=== PATIENT | female | born 1975 | race Caucasian/White ===

== ENCOUNTER 2021-07-26 15:56 | Emergency (ER) | payer MEDICAID ==
[~2021-07-26] VITALS: Ht 162.6 cm; Wt 61.5 kg
[2021-07-26 17:31] VITALS: BP 98/77
[2021-07-26 18:10] LABS: BASOPHILS # (AUTO) 0.1 X10'3 (0-0.2); BASOPHILS % (AUTO) 1.1 % (0-1); EOSINOPHILS # (AUTO) 0.4 X10'3 (0-0.9); EOSINOPHILS % (AUTO) 3.8 % (0-6); HEMATOCRIT 34.6 % (35.0-45.0); HEMOGLOBIN 11.7 g/dl (12.0-16.0); LYMPHOCYTES # (AUTO) 2.7 X10'3 (1.1-4.8); LYMPHOCYTES % (AUTO) 25.3 % (21-51); MEAN CORPUSCULAR HEMOGLOBIN 38.1 PG (27.0-31.0); MEAN CORPUSCULAR HGB CONC 33.9 g/dL (33.0-36.5); MEAN CORPUSCULAR VOLUME 112.4 FL (78-98); MEAN PLATELET VOLUME 8.1 FL (7.4-10.4); MONOCYTES # (AUTO) 1.1 X10'3 (0-0.9); MONOCYTES % (AUTO) 10.1 % (2-12); NEUTROPHILS # (AUTO) 6.3 X10'3 (1.8-7.7); NEUTROPHILS % (AUTO) 59.7 % (42-75); PLATELET COUNT 639 X10'3 (140-440); RED BLOOD COUNT 3.08 X10'6 (4.20-5.60); RED CELL DISTRIBUTION WIDTH 16.4 % (11.5-14.5); WHITE BLOOD COUNT 10.6 X10'3 (4.5-11.0)
[2021-07-26 18:20] LABS: ALANINE AMINOTRANSFERASE 23 U/L (12-78); ALBUMIN 2.5 G/DL (3.4-5.0); ALBUMIN/GLOBULIN RATIO 0.6 (1.1-1.5); ALKALINE PHOSPHATASE 205 IU/L (46-116); ANION GAP 13 (8-16); ASPARTATE AMINO TRANSFERASE 59 U/L (10-37); BILIRUBIN,TOTAL 0.9 MG/DL (0.1-1.0); BLOOD UREA NITROGEN 7 MG/DL (7-18); BUN/CREATININE RATIO 12.7 (6.6-38.0); CALCIUM 8.4 MG/DL (8.5-10.1); CHLORIDE 107 MMOL/L (99-107); CREATININE 0.55 MG/DL (0.40-0.90); GLUCOSE 88 MG/DL (70-104); SODIUM 142 MMOL/L (135-145); TOTAL CARBON DIOXIDE 22.5 MMOL/L (24-32); TOTAL PROTEIN 6.7 G/DL (6.4-8.2); eGFR > 90 ML/MIN
[2021-07-26 18:27] LABS: MAGNESIUM 1.8 MG/DL (1.5-2.4)
[2021-07-26 19:16] LABS: PLATELET ESTIMATE INCREASED
[2021-07-26 19:17] LABS: ANISOCYTOSIS 1+
== END 2021-07-26 19:46 | disposition home or self-care (01) ==
LOC: ER 15:58
DX: R07.89 Other chest pain (principal); Z20.822 Contact with and (suspected) exposure to COVID-19; M25.512 Pain in left shoulder; Z87.440 Personal history of urinary (tract) infections
CPT/HCPCS: 36415; 71045; 80053; 83735; 83880; 84484; 85008; 85025; 87635; 93005; 99285; C9803

== ENCOUNTER 2021-08-10 11:29 | Emergency (ER) | payer MEDICAID ==
[~2021-08-10] VITALS: Ht 162.6 cm; Wt 68.7 kg
[2021-08-10 11:35] VITALS: BP 105/73
[2021-08-10 16:28] LABS: ALANINE AMINOTRANSFERASE 17 U/L (12-78); ALBUMIN 2.3 G/DL (3.4-5.0); ALBUMIN/GLOBULIN RATIO 0.6 (1.1-1.5); ALKALINE PHOSPHATASE 113 IU/L (46-116); ANION GAP 13 (8-16); ASPARTATE AMINO TRANSFERASE 27 U/L (10-37); BILIRUBIN,TOTAL 0.4 MG/DL (0.1-1.0); BLOOD UREA NITROGEN 4 MG/DL (7-18); CALCIUM 8.9 MG/DL (8.5-10.1); CHLORIDE 107 MMOL/L (99-107); CREATININE 0.57 MG/DL (0.40-0.90); GLUCOSE 90 MG/DL (70-104); POTASSIUM 3.9 MMOL/L (3.5-5.1); SODIUM 145 MMOL/L (135-145); TOTAL CARBON DIOXIDE 25.4 MMOL/L (24-32); TOTAL PROTEIN 6.1 G/DL (6.4-8.2); eGFR > 90 ML/MIN
[2021-08-10 17:34] LABS: HEMATOCRIT 40.5 % (35.0-45.0); LYMPHOCYTES # (AUTO) 3.3 X10'3 (1.1-4.8); MEAN PLATELET VOLUME 9.4 FL (7.4-10.4); MONOCYTES # (AUTO) 1.3 X10'3 (0-0.9)
[2021-08-10 17:35] LABS: BASOPHILS % (AUTO) 0.2 % (0-1); EOSINOPHILS # (AUTO) 0.6 X10'3 (0-0.9); EOSINOPHILS % (AUTO) 3.5 % (0-6); LYMPHOCYTES % (AUTO) 19.6 % (21-51); MEAN CORPUSCULAR HGB CONC 32.2 g/dL (33.0-36.5); MEAN CORPUSCULAR VOLUME 108.8 FL (78-98); MONOCYTES % (AUTO) 7.5 % (2-12); NEUTROPHILS # (AUTO) 11.7 X10'3 (1.8-7.7); NEUTROPHILS % (AUTO) 69.2 % (42-75); PLATELET COUNT 643 X10'3 (140-440); RED BLOOD COUNT 3.72 X10'6 (4.20-5.60); RED CELL DISTRIBUTION WIDTH 15.9 % (11.5-14.5); WHITE BLOOD COUNT 16.9 X10'3 (4.5-11.0)
[2021-08-10] MEDS ORDERED: CefTRIAXone/D5W-Rocephin 1gm 50 ML IV ONE (17:45)
[2021-08-10 18:03] LABS: LIPASE 3146 U/L (73-393)
== END 2021-08-10 20:17 | disposition left against medical advice (07) ==
LOC: ER 11:30
DX: K74.60 Unspecified cirrhosis of liver (principal); R18.8 Other ascites; R10.84 Generalized abdominal pain; R11.2 Nausea with vomiting, unspecified; R19.7 Diarrhea, unspecified; Z87.440 Personal history of urinary (tract) infections
CPT/HCPCS: 36415; 76705; 80053; 83605; 83690; 84145; 85025; 85610; 87040; 99284

== ENCOUNTER 2021-08-19 10:10 | Emergency (ER) | payer MEDICAID ==
[~2021-08-19] VITALS: Ht 162.6 cm; Wt 71.7 kg
[2021-08-19 11:19] VITALS: BP 110/72
[2021-08-19 14:27] LABS: ALANINE AMINOTRANSFERASE 13 U/L (12-78); ALBUMIN 2.4 G/DL (3.4-5.0); ALBUMIN/GLOBULIN RATIO 0.6 (1.1-1.5); ALKALINE PHOSPHATASE 123 IU/L (46-116); ANION GAP 7 (8-16); ASPARTATE AMINO TRANSFERASE 30 U/L (10-37); BILIRUBIN,TOTAL 0.3 MG/DL (0.1-1.0); BLOOD UREA NITROGEN 5 MG/DL (7-18); BUN/CREATININE RATIO 9.1 (6.6-38.0); CALCIUM 8.1 MG/DL (8.5-10.1); CHLORIDE 109 MMOL/L (99-107); CREATININE 0.55 MG/DL (0.40-0.90); GLUCOSE 102 MG/DL (70-104); LIPASE 1155 U/L (73-393); POTASSIUM 3.9 MMOL/L (3.5-5.1); SODIUM 143 MMOL/L (135-145); TOTAL CARBON DIOXIDE 26.6 MMOL/L (24-32); TOTAL PROTEIN 6.5 G/DL (6.4-8.2); eGFR > 90 ML/MIN
[2021-08-19 17:34] LABS: URINE HCG NEGATIVE (NEG)
[2021-08-19 17:45] LABS: CLARITY,URINE CLOUDY (Clear); COLOR,URINE STRAW (Yellow); UA COLLECTION TYPE CLN CATCH MIDSTREAM
[2021-08-19 17:46] LABS: GLUCOSE, URINE NEGATIVE (Neg); KETONES,URINE NEGATIVE (Neg); NITRITES, URINE NEGATIVE (Neg); OCCULT BLOOD,URINE NEGATIVE (Neg); PROTEIN,URINE NEGATIVE (Neg); UROBILINOGEN,URINE 0.2 E.U/dL (0.2-1.0)
[2021-08-19 17:47] LABS: LEUKOCYTE ESTERASE ,URINE NEGATIVE (Neg)
[2021-08-19 17:55] LABS: MUCUS STRANDS MANY /LPF (Neg); SQUAMOUS EPITHELIAL CELL,UR MANY /LPF (FEW)
[2021-08-19 17:56] LABS: CAL OXALATE CRYSTALS 2+ /HPF (NEGATIVE)
[2021-08-19 17:57] LABS: BACTERIA,URINE 2+ /HPF (Neg); RBC,URINE NONE SEEN /HPF (0-2); WBC,URINE 0-4 /HPF (0-4)
[2021-08-19 18:37] LABS: BASOPHILS # (AUTO) 0.1 X10'3 (0-0.2); BASOPHILS % (AUTO) 1.2 % (0-1); EOSINOPHILS # (AUTO) 1.2 X10'3 (0-0.9); EOSINOPHILS % (AUTO) 10.4 % (0-6); HEMATOCRIT 37.3 % (35.0-45.0); HEMOGLOBIN 12.3 g/dl (12.0-16.0); LYMPHOCYTES # (AUTO) 3.1 X10'3 (1.1-4.8); LYMPHOCYTES % (AUTO) 27.3 % (21-51); MEAN CORPUSCULAR VOLUME 106.1 FL (78-98); MEAN PLATELET VOLUME 8.9 FL (7.4-10.4); MONOCYTES # (AUTO) 0.9 X10'3 (0-0.9); MONOCYTES % (AUTO) 7.5 % (2-12); NEUTROPHILS # (AUTO) 6.1 X10'3 (1.8-7.7); NEUTROPHILS % (AUTO) 53.6 % (42-75); PLATELET COUNT 462 X10'3 (140-440); RED BLOOD COUNT 3.51 X10'6 (4.20-5.60); RED CELL DISTRIBUTION WIDTH 15.2 % (11.5-14.5); WHITE BLOOD COUNT 11.5 X10'3 (4.5-11.0)
== END 2021-08-19 22:20 | disposition left against medical advice (07) ==
LOC: ER 10:17
DX: R10.9 Unspecified abdominal pain (principal); Z53.21 Procedure and treatment not carried out due to patient leaving prior to being seen by health care provider
CPT/HCPCS: 36415; 80053; 81001; 81025; 83690; 85025

== ENCOUNTER 2021-08-23 16:36 | Emergency (ER) | payer MEDICAID ==
[~2021-08-23] VITALS: Ht 162.6 cm; Wt 71.4 kg
[2021-08-23 17:25] LABS: BASOPHILS # (AUTO) 0.2 X10'3 (0-0.2); BASOPHILS % (AUTO) 1.2 % (0-1); EOSINOPHILS # (AUTO) 1.1 X10'3 (0-0.9); HEMOGLOBIN 12.8 g/dl (12.0-16.0); MEAN CORPUSCULAR HEMOGLOBIN 34.8 PG (27.0-31.0); MEAN PLATELET VOLUME 8.8 FL (7.4-10.4); RED BLOOD COUNT 3.68 X10'6 (4.20-5.60)
[2021-08-23 17:27] LABS: EOSINOPHILS % (AUTO) 8.5 % (0-6); HEMATOCRIT 38.5 % (35.0-45.0); LYMPHOCYTES # (AUTO) 3.5 X10'3 (1.1-4.8); LYMPHOCYTES % (AUTO) 27.2 % (21-51); MEAN CORPUSCULAR HGB CONC 33.3 g/dL (33.0-36.5); MEAN CORPUSCULAR VOLUME 104.6 FL (78-98); MONOCYTES % (AUTO) 7.9 % (2-12); NEUTROPHILS # (AUTO) 7.1 X10'3 (1.8-7.7); NEUTROPHILS % (AUTO) 55.2 % (42-75); PLATELET COUNT 528 X10'3 (140-440); RED CELL DISTRIBUTION WIDTH 15.4 % (11.5-14.5); WHITE BLOOD COUNT 12.8 X10'3 (4.5-11.0)
[2021-08-23 17:36] LABS: ALANINE AMINOTRANSFERASE 11 U/L (12-78); ALBUMIN 2.4 G/DL (3.4-5.0); ALBUMIN/GLOBULIN RATIO 0.6 (1.1-1.5); ALKALINE PHOSPHATASE 121 IU/L (46-116); ANION GAP 8 (8-16); ASPARTATE AMINO TRANSFERASE 31 U/L (10-37); BILIRUBIN,TOTAL 0.3 MG/DL (0.1-1.0); BLOOD UREA NITROGEN 5 MG/DL (7-18); BUN/CREATININE RATIO 10.6 (6.6-38.0); CALCIUM 8.6 MG/DL (8.5-10.1); CHLORIDE 107 MMOL/L (99-107); CREATININE 0.47 MG/DL (0.40-0.90); GLUCOSE 97 MG/DL (70-104); POTASSIUM 3.7 MMOL/L (3.5-5.1); SODIUM 137 MMOL/L (135-145); TOTAL CARBON DIOXIDE 21.9 MMOL/L (24-32); TOTAL PROTEIN 6.2 G/DL (6.4-8.2); eGFR > 90 ML/MIN
[2021-08-23 17:40] LABS: LIPASE 1524 U/L (73-393)
[2021-08-23] MEDS ORDERED: ondansetron 4mg rapidly disintigrating tab PO ONE (18:55)
[2021-08-23] MEDS ORDERED: spironolactone 50 MG tablet PO STA (18:58)
[2021-08-23] MEDS ORDERED: furosemide 20MG tablet PO ONE (19:00)
[2021-08-23] MEDS ORDERED: POTASSIUM BICARB 20meq eff tab 20 MEQ TABLET.EFF PO ONE (19:00)
[2021-08-23] MEDS ORDERED: ONDA4TAB6 PO (19:06)
[2021-08-23] MEDS ORDERED: FURO-150 PO (19:06)
[2021-08-23] MEDS ORDERED: SPIR50TA5 PO (19:06)
[2021-08-23 19:10] LABS: UA COLLECTION TYPE CLN CATCH MIDSTREAM
[2021-08-23 19:12] LABS: CLARITY,URINE TURBID (Clear); COLOR,URINE YELLOW (Yellow); GLUCOSE, URINE NEGATIVE (Neg); KETONES,URINE NEGATIVE (Neg); LEUKOCYTE ESTERASE ,URINE NEGATIVE (Neg); NITRITES, URINE NEGATIVE (Neg); OCCULT BLOOD,URINE NEGATIVE (Neg); PROTEIN,URINE TRACE mg/dl (Neg); UROBILINOGEN,URINE 0.2 E.U/dL (0.2-1.0)
[2021-08-23] MEDS ORDERED: POTASSIUM BICARBONATE/CIT AC 10 MEQ TABLET.EFF PO ONE (19:15)
[2021-08-23 19:34] LABS: MUCUS STRANDS MANY /LPF (Neg); SQUAMOUS EPITHELIAL CELL,UR MANY /LPF (FEW)
[2021-08-23 19:35] LABS: BACTERIA,URINE 1+ /HPF (Neg)
[2021-08-23 19:40] LABS: RBC,URINE 0-2 /HPF (0-2); WBC,URINE 0-4 /HPF (0-4)
--- NOTE | 2021-08-23 19:55 | NUR ---
DR. KATZ AT BEDSIDE DISCUSSING PLAN CARE OF AND DC INSTRUCTIONS W/ PT.
[2021-08-23 20:03] VITALS: BP 105/75
== END 2021-08-23 20:08 | disposition home or self-care (01) ==
LOC: ER 16:37
DX: R18.8 Other ascites (principal); K74.60 Unspecified cirrhosis of liver; R11.0 Nausea; R10.84 Generalized abdominal pain; Z87.440 Personal history of urinary (tract) infections; Z90.89 Acquired absence of other organs; Z72.89 Other problems related to lifestyle; Z79.899 Other long term (current) drug therapy
CPT/HCPCS: 36415; 80053; 81001; 83690; 85025; 85610; 99284

== ENCOUNTER 2021-09-16 06:09 | Day surgery (SDC) | payer MEDICAID ==
[~2021-09-16] VITALS: Ht 162.6 cm; Wt 70.3 kg
[2021-09-16] VITALS (10 sets, daily range): BP systolic 93–121; BP diastolic 45–82
[~2021-09-16 06:09] MED LIST: FURO-150 PO; ONDA4TAB6 PO; SPIR50TA5 PO
[2021-09-16] MEDS ORDERED: albumin 25% 100mL bottle x 1 IV PRN (06:35)
[2021-09-16] MEDS ORDERED: normal saline 1000ml 1,000 ML IV PRN (06:35)
[2021-09-16] MEDS ORDERED: PANT40TA54 PO (06:57)
[2021-09-16] MEDS ORDERED: FURO-150 PO (06:57)
[2021-09-16] MEDS ORDERED: ACET-1025 PO (06:57)
[2021-09-16] MEDS ORDERED: IBUP-24 PO (06:57)
[2021-09-16] MEDS ORDERED: ONDA4TAB12 PO (06:57)
[2021-09-16] MEDS ORDERED: CALC500T11 PO (06:57)
[2021-09-16] MEDS ORDERED: SPIR50TA5 PO (06:57)
[2021-09-16 11:08] LABS: GLUCOSE,BODY FLUID 93 MG/DL; LDH,BODY FLUID 108 U/L; TOTAL PROTEIN,BODY FLUID 3.3 G/DL
[2021-09-16 11:20] LABS: BF RBC COUNT 705 /CU MM; BF WBC COUNT 220 /CU MM (0-1000); BFAPPEAR HAZY; BFCOLOR YELLOW; BFVOLUME 60 ML
[2021-09-16 11:21] LABS: BF MESOTHELIAL CELLS MODERATE; EOSINOPHILS,BODY FLUID 7 %; LYMPHOCYTES,BODY FLUID 64 %; MONOCYTES,BODY FLUID 23 %; NEUTROPHILS,BODY FLUID 6 %
== END 2021-09-16 10:25 | disposition home or self-care (01) ==
LOC: SSTAY O 06:09
PROVIDERS: ATTEND Preventive Medicine Aerospace Medicine
DX: R18.8 Other ascites (principal); K21.9 Gastro-esophageal reflux disease without esophagitis; K74.60 Unspecified cirrhosis of liver; F10.20 Alcohol dependence, uncomplicated; F17.290 Nicotine dependence, other tobacco product, uncomplicated; Z98.890 Other specified postprocedural states; Z79.899 Other long term (current) drug therapy
CPT/HCPCS: 49083; 82945; 83615; 84157; 87070; 89051; P9047

== ENCOUNTER 2021-10-05 06:15 | Day surgery (SDC) | payer MEDICAID ==
[~2021-10-05] VITALS: Ht 162.6 cm; Wt 63.5 kg
[~2021-10-05 06:15] MED LIST changes: +ACET-1025 PO; +CALC500T11 PO; +IBUP-24 PO; +LIDOcaine 1% 30ml preserv. free vial SQ STA; +ONDA4TAB12 PO; -ONDA4TAB6 PO; +PANT40TA54 PO
[2021-10-05] MEDS ORDERED: albumin 25% 100mL bottle x 1 IV PRN (06:35)
[2021-10-05] MEDS ORDERED: normal saline 1000ml 1,000 ML IV PRN (06:35)
[2021-10-05 07:00] VITALS: BP 101/65
[2021-10-05] MEDS ORDERED: LACT10SO3 PO (07:03)
[2021-10-05 08:20] VITALS: BP 119/69
[2021-10-05 08:27] VITALS: BP 97/78
[2021-10-05 08:33] VITALS: BP 94/59
[2021-10-05 08:50] VITALS: BP 97/63
== END 2021-10-05 08:55 | disposition home or self-care (01) ==
LOC: SSTAY O 06:15
PROVIDERS: ATTEND Radiology Vascular & Interventional Radiology
DX: R18.8 Other ascites (principal); K74.60 Unspecified cirrhosis of liver; F17.290 Nicotine dependence, other tobacco product, uncomplicated; Z98.890 Other specified postprocedural states
CPT/HCPCS: 49083

== ENCOUNTER 2021-11-11 06:32 | Day surgery (SDC) | payer MEDICAID ==
[~2021-11-11] VITALS: Ht 162.6 cm; Wt 61.4 kg
[2021-11-11] VITALS (7 sets, daily range): BP systolic 89–112; BP diastolic 55–70
[~2021-11-11 06:32] MED LIST changes: -CALC500T11 PO; -IBUP-24 PO; +LACT10SO3 PO; -LIDOcaine 1% 30ml preserv. free vial SQ STA; -ONDA4TAB12 PO
[2021-11-11] MEDS ORDERED: albumin 25% 100mL bottle x 1 IV PRN (06:55)
[2021-11-11] MEDS ORDERED: SPIR100T PO (07:33)
[2021-11-11] MEDS ORDERED: ONDA8TAB13 PO (07:33)
[2021-11-11] MEDS ORDERED: FURO-149 PO (07:33)
[2021-11-11] MEDS ORDERED: LIDOcaine 1% 30ml preserv. free vial IJ STA (08:32)
== END 2021-11-11 09:55 | disposition home or self-care (01) ==
LOC: SSTAY O 06:32
PROVIDERS: ATTEND Preventive Medicine Aerospace Medicine
DX: R18.8 Other ascites (principal); R14.0 Abdominal distension (gaseous); K74.60 Unspecified cirrhosis of liver; K21.9 Gastro-esophageal reflux disease without esophagitis; F10.20 Alcohol dependence, uncomplicated; F17.210 Nicotine dependence, cigarettes, uncomplicated; Z72.89 Other problems related to lifestyle; Z79.899 Other long term (current) drug therapy
CPT/HCPCS: 49083; J3490; P9047

== ENCOUNTER 2021-12-13 06:09 | Day surgery (SDC) | payer MEDICAID ==
[~2021-12-13] VITALS: Ht 162.6 cm; Wt 63.9 kg
[2021-12-13] VITALS (7 sets, daily range): BP systolic 90–112; BP diastolic 50–74
[~2021-12-13 06:09] MED LIST changes: +FURO-149 PO; -FURO-150 PO; +ONDA8TAB13 PO; +SPIR100T PO; -SPIR50TA5 PO
[2021-12-13] MEDS ORDERED: albumin 25% 100mL bottle x 1 IV PRN (06:30)
[2021-12-13] MEDS ORDERED: LIDOcaine 1% 30ml preserv. free vial SQ STA (06:46)
[2021-12-13 09:30] LABS: ALBUMIN,BODY FLUID 1.3 G/DL; TOTAL PROTEIN,BODY FLUID 3.7 G/DL
[2021-12-13 10:34] LABS: BF RBC COUNT 32 /CU MM; BF WBC COUNT 105 /CU MM (0-1000); BFAPPEAR HAZY; BFCOLOR STRAW; BFVOLUME 56 ML; EOSINOPHILS,BODY FLUID 4 %; LYMPHOCYTES,BODY FLUID 20 %; NEUTROPHILS,BODY FLUID 16 %
[2021-12-13 10:40] LABS: MONOCYTES,BODY FLUID 60 %
[2021-12-13 11:33] LABS: OTHER CELLS,BODY FLUID MACROPHAGES
== END 2021-12-13 09:40 | disposition home or self-care (01) ==
LOC: SSTAY O 06:09
PROVIDERS: ATTEND Preventive Medicine Aerospace Medicine
DX: R18.8 Other ascites (principal); K74.60 Unspecified cirrhosis of liver; K21.9 Gastro-esophageal reflux disease without esophagitis; F10.20 Alcohol dependence, uncomplicated; Z98.890 Other specified postprocedural states; F17.210 Nicotine dependence, cigarettes, uncomplicated; Z79.899 Other long term (current) drug therapy
CPT/HCPCS: 49083; 82042; 84157; 89051; J3490; P9047

== ENCOUNTER 2022-01-25 06:35 | Day surgery (SDC) | payer MEDICAID ==
[~2022-01-25] VITALS: Ht 162.6 cm; Wt 63.7 kg
[2022-01-25] VITALS (7 sets, daily range): BP systolic 91–106; BP diastolic 57–79
[2022-01-25] MEDS ORDERED: albumin 25% 100mL bottle x 1 IV PRN (06:50)
[2022-01-25] MEDS ORDERED: IBUP-24 PO (06:51)
[2022-01-25] MEDS ORDERED: LIDOcaine 1% 30ml preserv. free vial SQ STA (08:14)
[2022-01-25 10:08] LABS: EOSINOPHILS,BODY FLUID 4 %; LYMPHOCYTES,BODY FLUID 13 %; MONOCYTES,BODY FLUID 76 %; NEUTROPHILS,BODY FLUID 7 %
[2022-01-25 10:17] LABS: BF WBC COUNT 570 /CU MM (0-1000); BFAPPEAR CLOUDY; BFCOLOR YELLOW; BFVOLUME 58 ML
[2022-01-25 10:18] LABS: BF RBC COUNT 75 /CU MM
[2022-01-25 10:19] LABS: ALBUMIN,BODY FLUID 1.7 G/DL; TOTAL PROTEIN,BODY FLUID 3.7 G/DL
== END 2022-01-25 11:15 | disposition home or self-care (01) ==
LOC: SSTAY O 06:35
PROVIDERS: ATTEND Radiology Vascular & Interventional Radiology
DX: R18.8 Other ascites (principal); K74.60 Unspecified cirrhosis of liver; K21.9 Gastro-esophageal reflux disease without esophagitis; F17.210 Nicotine dependence, cigarettes, uncomplicated; Z98.890 Other specified postprocedural states; Z79.899 Other long term (current) drug therapy
CPT/HCPCS: 49083; 82042; 84157; 87070; 89051; P9047

== ENCOUNTER 2022-03-14 07:07 | Day surgery (SDC) | payer MEDICAID ==
[~2022-03-14] VITALS: Ht 162.6 cm; Wt 66.5 kg
[~2022-03-14 07:07] MED LIST changes: +IBUP-24 PO
[2022-03-14] MEDS ORDERED: albumin 25% 100mL bottle x 1 IV PRN (07:25)
[2022-03-14] MEDS ORDERED: SPIR100T5 PO (07:37)
[2022-03-14] MEDS ORDERED: FURO80TA3 PO (07:37)
[2022-03-14] MEDS ORDERED: LIDOcaine 1%/PF 5ML 10 MG/ML VIAL SQ ONE (07:45)
[2022-03-14 08:10] VITALS: BP 93/65
[2022-03-14 09:13] VITALS: BP 96/70
[2022-03-14 09:27] VITALS: BP 90/63
[2022-03-14 09:45] VITALS: BP 91/63
[2022-03-14 10:00] VITALS: BP 88/67
[2022-03-14 10:21] VITALS: BP 89/60
== END 2022-03-14 10:45 | disposition home or self-care (01) ==
LOC: SSTAY O 07:07
PROVIDERS: ATTEND Preventive Medicine Aerospace Medicine
DX: R18.8 Other ascites (principal); R14.0 Abdominal distension (gaseous); K21.9 Gastro-esophageal reflux disease without esophagitis; K74.69 Other cirrhosis of liver; F10.20 Alcohol dependence, uncomplicated; F17.290 Nicotine dependence, other tobacco product, uncomplicated; Z98.890 Other specified postprocedural states; Z79.899 Other long term (current) drug therapy
CPT/HCPCS: 49083; P9047

== ENCOUNTER → 2024-05-22 | Outpatient (CLI) | payer MEDICAID ==
[~2024-05-22] MED LIST changes: -FURO-149 PO; +FURO80TA3 PO; -SPIR100T PO; +SPIR100T5 PO
== END | disposition home or self-care (01) ==
LOC: RAD 14:16
PROVIDERS: ATTEND Nurse Practitioner
DX: K76.0 Fatty (change of) liver, not elsewhere classified (principal); K74.60 Unspecified cirrhosis of liver
CPT/HCPCS: 76700